=== PATIENT | female | born 1985 | race Hispanic/Latino ===

== ENCOUNTER 2017-02-23 10:41 | Outpatient (CLI) | payer MEDICAID, OTHER ==
--- NOTE | 2017-02-23 12:44 | RAD ---
TWO VIEWS OF THE CHEST: COMPARISON: 01/30/17. HISTORY: Dyspnea. FINDINGS: Two views of the chest show a normal-size cardiomediastinal silhouette. Increased interstitial lung markings are present. There appears to be an unchanged retrocardiac infiltrate. This could also r epresent scarring. There may also be infiltrates in the right lower lobe. IMPRESSION: Bilateral lower lobe infiltrates. POS: [facility]
== END 2017-02-23 10:42 | disposition home or self-care (01) ==
LOC: RAD 10:41
PROVIDERS: ATTEND Internal Medicine Pulmonary Disease
DX: R06.00 Dyspnea, unspecified (principal); R91.8 Other nonspecific abnormal finding of lung field
CPT/HCPCS: 71020

== ENCOUNTER 2017-06-14 04:34 | Emergency (ER) | payer SELFPAY ==
[2017-06-14] MEDS ORDERED: Lorazepam 2 MG/ML VIAL ONE (05:14)
--- NOTE | 2017-06-14 10:18 | RAD ---
UPRIGHT PORTABLE CHEST 1 VIEW: Date: 06/14/17 HISTORY: 31-year-old female with dyspnea. FINDINGS: Monitor leads overlie the chest. There are interstitial and reticulonodular parenchymal changes bilat erally in the perihilar regions and lower lung zones, somewhat more prominent in the right base. Poss ibilities include that of somewhat asymmetric pulmonary edema and/or bilateral pneumonia and pneumoni tis. Heart size is within normal limits. IMPRESSION: Fairly extensive bilateral interstitial and reticulonodular parenchymal changes, somewhat more promin ent in the right base. Bilateral pneumonia and pneumonitis and/or asymmetric pulmonary edema are cons idered most likely etiologies. The most marked changes are in the right lower lobe. POS: [facility]
== END 2017-06-14 05:54 | disposition home or self-care (01) ==
LOC: EDBD 04:34 → ERS 04:34
DX: J45.901 Unspecified asthma with (acute) exacerbation (principal); J18.9 Pneumonia, unspecified organism; F41.9 Anxiety disorder, unspecified
CPT/HCPCS: 71045; 96374; J2060

== ENCOUNTER 2017-06-17 13:38 | Emergency (ER) | payer SELFPAY ==
[2017-06-17 14:00] LABS: #Eosinphils 0.1 thou/uL (0.0-0.7); #Lymphocytes 0.4 thou/uL (1.20-3.40); #Monocytes 0.7 thou/uL (0.11-0.59); #Neutrophils 4.3 thou/uL (1.40-6.50); %Basophils 0.4 % (0.0-1.0); %Neutrophils 77.6 % (42.0-75.0); Hemoglobin 12.5 g/dL (12.0-16.0); Mean Corpuscular HGB CONC 31.9 g/dL (32.0-36.0); Mean Corpuscular Hemoglobin 24.8 pg (27.0-31.0); Mean Corpuscular Volume 77.9 fl (81.0-99.0); Mean Platelet Volume 8.5 fL (7.4-10.4); Platelet Count 411 thou/uL (130-400); RBC Distribution Width 14.8 % (11.5-14.5); Red Blood Cell (RBC) Count 5.04 mill/uL (4.20-5.40); White Blood Cell (WBC) Count 5.6 thou/uL (4.8-10.8)
[2017-06-17 14:12] LABS: Bilirubin Small (Negative); Blood, Urine Trace (Negative); Clarity CLOUDY (Clear); Glucose, Urine (Dipstick) Negative (Negative); Leukocyte Moderate (Negative); Nitrite Negative (Negative); Protein, Urine (Dipstick) 30 mg/dL (Neg-Trace)
[2017-06-17 14:14] LABS: Bacteria/HPF 2+ HPF (None Seen); Hyaline Casts/LPF 4-6 HYALINE CAST LPF (0-3 Hyaline); Pathc Cast-AUWi Flag 1.49 (0-2.49); WBC/HPF 21-50 HPF (0-3)
[2017-06-17 14:19] LABS: Pregnancy Test - Urine (BHCG) Negative (Negative); Pregu Control Background? CLEAR/WHITE (CLR/WHITE); Pregu Control Bar Appear? YES (CONTROL BAR)
[2017-06-17 14:20] LABS: ALT (SGPT) 42 U/L (8-55); AST (SGOT) 37 U/L (5-34); Acetaminophen Less than 6.0 mcg/mL (10.0-30.0); Albumin 4.2 g/dL (3.5-5.0); Alcohol Less than 10 mg/dL (Less than 10); Alkaline Phosphatase 58 U/L (40-150); Anion Gap 17 mmol/L (10-20); BUN (Urea Nitrogen) 18 mg/dL (7.0-18.7); Bilirubin, Total 0.4 mg/dL (0.2-1.2); CK (CPK) 15 U/L (29-168); Calc. Creatinine Clearance 0 mL/min (70-130); Calcium 10.7 mg/dL (7.8-10.44); Carbon Dioxide 20 mmol/L (22-29); Chloride 107 mmol/L (98-107); Estimated GFR-MDRD 89; Globulin 3.9 g/dL (2.4-3.5); Glucose 90 mg/dL (70-105); Potassium 3.5 mmol/L (3.5-5.1); Protein, Total 8.1 g/dL (6.0-8.3); Salicylate Less than 8.0 mg/dL (15.0-30.0); Sodium 140 mmol/L (136-145)
[2017-06-17 14:20] LABS: Medtox Reader # READER 1; Phencyclidine (PCP) Not Detected (NotDetected); THC/Cannabinoid Screen Not Detected (NotDetected)
[2017-06-17 14:21] LABS: Amphetamine Not Detected (NotDetected); Barbiturates Screen Not Detected (NotDetected); Benzodiazepine Screen Detected (NotDetected); Cocaine Metabolite Screen Not Detected (NotDetected); Medtox Control Line Valid? VALID (VALID); Methadone Not Detected (NotDetected); Methamphetamine Not Detected (NotDetected); Opiate Screen Not Detected (NotDetected); Oxycodone Screen Not Detected (NotDetected); Tricyclic Screen Not Detected (NotDetected)
[2017-06-17] MEDS ORDERED: Acetaminophen 500 MG TAB ONE (16:12)
[2017-06-17] MEDS ORDERED: Cephalexin 250 MG CAP ONE (16:12)
[2017-06-17] MEDS ORDERED: predniSONE 20 MG TAB PO SCH (23:45)
[2017-06-18] MEDS ORDERED: Divalproex Sodium DR 500 MG TAB PO SCH (08:00)
[2017-06-18] MEDS ORDERED: predniSONE 20 MG TAB PO SCH (08:00)
[2017-06-18] MEDS ORDERED: cycloSPORINE, Modified 25 MG CAP PO SCH (09:00)
[2017-06-18] MEDS ORDERED: Hydroxychloroquine Sulfate 200 MG TAB PO SCH (09:00)
== END 2017-06-17 21:29 | disposition home or self-care (01) ==
LOC: ERS 13:38
DX: R45.851 Suicidal ideations (principal); N39.0 Urinary tract infection, site not specified; J45.909 Unspecified asthma, uncomplicated; F41.9 Anxiety disorder, unspecified; Z79.899 Other long term (current) drug therapy
CPT/HCPCS: 36415; 80053; 80306; 80307; 81003; 81015; 81025; 82550; 84443; 85025; 87086; 99285